=== PATIENT | male | born 1955 | race Caucasian/White ===

== ENCOUNTER → 2017-06-13 | Outpatient (CLI) | payer OTHER | LOC: FIMAGING 13:42 | PROVIDERS: ATTEND Orthopaedic Surgery | DX: M17.11 Unilateral primary osteoarthritis, right knee (principal) ==

== ENCOUNTER 2017-07-09 07:03 | Inpatient (IN) | payer BC, OTHER ==
[~2017-07-09 07:03] MED LIST: POVIDONE-IODINE 20 ML in SODIUM CL IRRIG SOLUTION 500 ML IRR ONE; ROPIVACAINE 0.2% 80 MG, EPINEPHrine 0.2 MG, KETOROLAC TROMETHAMINE 30 MG in SYRINGE 0 ML IU ONE; TRANEXAMIC ACID 3,000 MG in NS 50 ML IRR ONE; VANCOMYCIN 1.5 GM in D5W 250 ML IV SCH; VANCOMYCIN PHARMACY TO DOSE MISC ONE
--- NOTE | 2017-07-09 07:10 | PDHPUP ---
History & Physical Update H&P update statement: This history and physical update is based on an assessment of the patient which was completed after admission or registration (within 24 hours), but prior to the surgery/procedure. H&P update: H&P reviewed & patient examined, no change in patient's condition since H&P completed
[2017-07-09] MEDS ORDERED: FAMOTIDINE 20 MG TAB PO ONE (07:40)
[2017-07-09] MEDS ORDERED: ceFAZolin 2 GM/SWFI 2 GM/20 ML SYR IVP ONE (07:40)
[2017-07-09] MEDS ORDERED: DEXAMETHASONE 4 MG/ML VIAL IVP ONE (07:40)
[2017-07-09] MEDS ORDERED: ACETAMINOPHEN 325 MG TAB PO ONE (07:40)
[2017-07-09] MEDS ORDERED: TRANEXAMIC ACID 3,000 MG/50 ML BAG IRR ONE (07:40)
[2017-07-09] MEDS ORDERED: VANCOMYCIN 1 GM VIAL ONE (07:40)
[2017-07-09] MEDS ORDERED: LR 1,000 ML IV ONE (07:41)
[2017-07-09] MEDS ORDERED: LIDOCAINE 1% 2 ML INJ ID PRN (07:41)
[2017-07-09] MEDS ORDERED: VANCOMYCIN 1.5 GM in D5W 250 ML IV ONE (08:30)
[2017-07-09] MEDS ORDERED: MIDAZOLAM 2 MG/2 ML VIAL IVP ONE (09:08)
[2017-07-09] MEDS ORDERED: MIDAZOLAM 2 MG/2 ML VIAL ONE (09:10)
--- NOTE | 2017-07-09 09:10 | PDANEPAE ---
ANE History of Present Illness R KNEE OA ANE Past Medical History - Cardiovascular History Hx Hypertension: Yes Hx Arrhythmias: No Hx Chest Pain: No Hx Coronary Artery / Peripheral Vascular Disease: Yes Hx CHF / Valvular Disease: No Hx Palpitations: No Cardiovascular History Comment: cad. cardiac stent x1. multiple dvt's- on xarelto. seen by Dr. Camp at [facility] in [place]. - Pulmonary History Hx COPD: No Hx Asthma/Reactive Airway Disease: No Hx Recent Upper Respiratory Infection: No Hx Oxygen in Use at Home: No Hx Sleep Apnea: No Sleep Apnea Screening Result - Last Documented: Positive Pulmonary History Comment: hx of pna x2 none since he got pneumia vaccine. maldonado triggers - Neurologic History Hx Cerebrovascular Accident: No Hx Seizures: No Hx Dementia: No - Endocrine History Hx Diabetes: No - Renal History Hx Renal Disorders: No - Liver History Hx Hepatic Disorders: No - Neurological & Psychiatric Hx Hx Neurological and Psychiatric Disorders: No - Cancer History Hx Cancer: No - Congenital Disorder History Hx Congenital Disorders: No - GI History Hx Gastrointestinal Disorders: Yes Gastrointestinal History Comment: constipation with oxycontin - Other Health History Other Health History: wears glasses/ contacts. factor v leiden - Chronic Pain History Chronic Pain: Yes (bilateral knee pain) - Surgical History Prior Surgeries: right knee scope in 2006 then needed i&d shortly afterward. multiple knee surgeries on the right side starting in 1970. left achilles tendon repair 2001. cardiac stent x1 ANE Review of Systems Review of Systems: - Exercise capacity METS (RN): 4 METS ANE Patient History - Allergies Allergies/Adverse Reactions: No Known Allergies Allergy (Verified 06/23/17 14:20) - Home Medications Home Medications: Aspirin [Aspirin 81mg (*)] 81 mg PO DAILY 09/13/10 [Last Taken 07/02/17] Herbals/Supplements -Info Only 1 ea PO DAILY 06/23/17 [Last Taken 06/25/17] Lisinopril [Zestril 20 mg (*)] 20 mg PO BID 06/23/17 [Last Taken 07/08/17 21:00] Metoprolol Tartrate [Lopressor 50 mg (*)] 50 mg PO BID 06/23/17 [Last Taken 06:00] Rivaroxaban [Xarelto 10mg (*)] 20 mg PO HS 06/23/17 [Last Taken 07/02/17] Rosuvastatin Calcium [Crestor 40mg (*)] 40 mg PO DAILY18 06/23/17 [Last Taken 21:00] amLODIPine BESYLATE [Norvasc 5 mg (*)] 5 mg PO BID 06/23/17 [Last Taken 06:00] - NPO status NPO Status: no food or drink >8 hours NPO Since - Liquids (Date): 07/09/17 NPO Since - Liquids (Time): 06:00 NPO Since - Solids (Date): 07/08/17 NPO Since - Solids (Time): 19:00 - Smoking Hx Smoking Status: Never smoked - Family Anes Hx Family Hx Anesthesia Complications: none ANE Labs/Vital Signs - Vital Signs Vital Signs: reviewed preoperatively; see RN documention for details Blood Pressure: 115/81 Heart Rate: 66 Respiratory Rate: 16 O2 Sat (%): 91 Height: 185.42 cm Weight: 92.986 kg ANE Physical Exam - Airway Neck exam: FROM Mallampati Score: Class 1 Mouth exam: normal dental/mouth exam - Pulmonary Pulmonary: no respiratory distress - Cardiovascular Cardiovascular: regular rate and rhythym - ASA Status ASA Status: III ANE Anesthesia Plan Anesthesia Plan: GA w LMA, spinal Regional Anesthesia: adductor canal FNB
[2017-07-09] MEDS ORDERED: fentaNYL 100 MCG/2 ML INJ ONE (09:18)
[2017-07-09] MEDS ORDERED: DEXAMETHASONE 4 MG/ML VIAL ONE (09:18)
[2017-07-09] MEDS ORDERED: ROPIVACAINE HCL 150 MG/30 ML INJ ONE (09:18)
[2017-07-09] MEDS ORDERED: ONDANSETRON 4 MG/2 ML VIAL ONE (09:18)
[2017-07-09] MEDS ORDERED: PROPOFOL/EMULSION 500 MG/50 ML BOTTLE IV ONE (09:19)
[2017-07-09] MEDS ORDERED: OXYCODONE/APAP 5/325 TAB PO PRN (10:05)
[2017-07-09] MEDS ORDERED: HYDROmorphONE/DILAUDID 1 MG/ML INJ IVP PRN (10:05)
[2017-07-09] MEDS ORDERED: ONDANSETRON 4 MG/2 ML VIAL IVP PRN ×2 (10:05→10:06)
[2017-07-09] MEDS ORDERED: NALOXONE HCL 0.4 MG/ML INJ IVP PRN (10:05)
[2017-07-09] MEDS ORDERED: MEPERIDINE 25 MG/ML SYR IVP PRN (10:05)
[2017-07-09] MEDS ORDERED: PROMETHAZINE HCL 25 MG/ML INJ IVP PRN ×2 (10:05→10:06)
[2017-07-09] MEDS ORDERED: fentaNYL 100 MCG/2 ML INJ IVP PRN (10:05)
[2017-07-09] MEDS ORDERED: MAGNESIUM HYDROXIDE 30 ML UDCUP PO PRN (10:06)
[2017-07-09] MEDS ORDERED: BISACODYL 10 MG SUPP PR PRN (10:06)
[2017-07-09] MEDS ORDERED: POLYETHYLENE GLYCOL 3350 17 GM PKT PO PRN (10:06)
[2017-07-09] MEDS ORDERED: DIPHENOXYLATE/ATROPINE LOMOTIL 1 TAB PO PRN (10:06)
[2017-07-09] MEDS ORDERED: diphenhydrAMINE 25 MG CAP PO PRN (10:06)
[2017-07-09] MEDS ORDERED: PROMETHAZINE HCL 25 MG SUPPR PR PRN (10:06)
[2017-07-09] MEDS ORDERED: ONDANSETRON DISINTEGRATING 4 MG TAB PO PRN (10:06)
[2017-07-09] MEDS ORDERED: CYCLOBENZAPRINE 10 MG TAB PO PRN (10:06)
[2017-07-09] MEDS ORDERED: TEMAZEPAM 15 MG CAP PO PRN (10:06)
[2017-07-09] MEDS ORDERED: METOCLOPRAMIDE 10 MG/2 ML VIAL IVP PRN (10:06)
[2017-07-09] MEDS ORDERED: LACTULOSE 20 GM/30 ML UDCUP PO PRN (10:06)
[2017-07-09] MEDS ORDERED: PROPOFOL 200 MG/20 ML VIAL ONE (10:18)
[2017-07-09] MEDS ORDERED: LR 1,000 ML IV SCH (10:30)
--- NOTE | 2017-07-09 11:24 | POSTANESTH ---
Post Anesthetic Evaluation Cardiovascular Status: Normal, Stable Respiratory Status: Normal, Stable Level of Consciousness/Mental Status: Can Participate in Eval Pain Control: Adequate, Prn Tx Ordered Nausea/Vomiting Control: Adequate, Prn Tx Ordered Complications Possibly Related to Anesthesia: None Noted
--- NOTE | 2017-07-09 12:04 | POSTOPPROG ---
Post Op Note Date of Operation: 07/09/17 Surgeon: Terri Paris Transportation Operations Manager: sai paris Anesthesiologist: dr. penny Anesthesia: Spinal, Other (Specify) (adductor canal block) Pre-op Diagnosis: Right knee OA Post-op Diagnosis: same Indication: right knee pain due to OA that failed conservative measuers Procedure: R TKA robot assisted Findings: severe knee OA Inf/Abcess present in the surg proc area at time of surgery?: No EBL: 50-100
[2017-07-09 12:45] VITALS: RESP 16
[2017-07-09] MEDS: ACETAMINOPHEN 325 MG TAB PO SCH ×3 (15:05→23:29)
[2017-07-09] MEDS: ceFAZolin 2 GM/DEXTROSE 100 ML IV SCH (17:39)
[2017-07-09] MEDS ORDERED: ROSUVASTATIN CALCIUM 40 MG TAB PO SCH (18:00)
[2017-07-09] MEDS: oxyCODONE IR 5 MG TAB PO PRN (20:33)
[2017-07-09] MEDS: LISINOPRIL 20 MG TAB PO SCH (20:34)
[2017-07-09] MEDS: SENNOSIDES/DOCUSATE SODIUM TAB PO SCH (20:34)
[2017-07-09] MEDS: METOPROLOL TARTRATE 50 MG TAB PO SCH (20:36)
[2017-07-09] MEDS: FAMOTIDINE 20 MG TAB PO SCH (20:37)
[2017-07-09] MEDS: amLODIPine BESYLATE 5 MG TAB PO SCH (20:37)
[2017-07-09] MEDS ORDERED: RIVAROXABAN 10 MG TAB PO SCH (21:00)
[2017-07-10] MEDS: ceFAZolin 2 GM/DEXTROSE 100 ML IV SCH (01:22)
[2017-07-10] MEDS: ACETAMINOPHEN 325 MG TAB PO SCH ×2 (04:55→12:29)
[2017-07-10 05:44] LABS: HEMATOCRIT 34.5 % (40.0-51.0); HEMOGLOBIN 11.8 g/dL (13.7-17.5)
[2017-07-10 07:59] VITALS: BP 120/77; PULSE 76; TEMP 98.1; O2SAT 94
[2017-07-10] MEDS: METOPROLOL TARTRATE 50 MG TAB PO SCH (08:22)
[2017-07-10] MEDS: LISINOPRIL 20 MG TAB PO SCH (08:22)
[2017-07-10] MEDS: FAMOTIDINE 20 MG TAB PO SCH (08:22)
[2017-07-10] MEDS: amLODIPine BESYLATE 5 MG TAB PO SCH (08:22)
[2017-07-10] MEDS: SENNOSIDES/DOCUSATE SODIUM TAB PO SCH (08:23)
[2017-07-10] MEDS: oxyCODONE IR 5 MG TAB PO PRN (08:25)
--- NOTE | 2017-07-10 13:48 | GOP ---
[f rep st] OPERATIVE REPORT DATE OF OPERATION: 07/09/2017 SURGEON: Estrella Lowe MD CDL INSTRUCTOR: Xochitl Lowe PA-C ANESTHESIA: Spinal. PREOPERATIVE DIAGNOSIS: Right knee osteoarthritis. POSTOPERATIVE DIAGNOSIS: Right knee osteoarthritis. PROCEDURE PERFORMED: Right total knee arthroplasty. FINDINGS/PATHOLOGY: Severe tricompartmental osteoarthritis. ESTIMATED BLOOD LOSS: 30 cc. INDICATIONS: This is a 61-year-old male with severe and progressive pain and deformity of the right knee unresponsive to conservative care. Risks and benefits of the surgical intervention were explained in detail. DESCRIPTION OF PROCEDURE: The patient was brought to the operative room and placed on the table in the supine position. Spinal anesthesia was induced without difficulty. A pneumatic tourniquet was applied about the right proximal thigh, and the leg was prepped and draped in a sterile fashion. The leg wood was applied. After exsanguination by elevation the tourniquet was inflated to 275 mm of mercury. Incision was made anterior medial from the tibial tuberosity to a point 2 cm proximal to the superior pole of the patella. Medial parapatellar arthrotomy was carried out from the superior pole of the patella and posteriorly in line with the fibers of the Type II VMO. The medial collateral ligament was elevated and the infrapatellar fat pad was resected. The patella was everted and the articular surface was excised. A 38 mm patellar button was placed. Attention was turned first to the distal aspect of the right femur. At 3 cm proximal to the medial rise of the femur, 2 percutaneous half pins were placed for fixation of the femoral array. In a similar fashion, 2 pins were placed anteromedial on the tibia for fixation of the tibial array. External land marking and registration of the hip center was performed without difficulty. Internal femoral and tibial registration was carried out without difficulty and the femoral and tibial checkpoints were placed and verified for accuracy. Attention was turned to the femur. The foot print for the size 6 femoral component was cut with the saw using the [employer] robotic system and verified for accuracy against the CT based plan. In a similar fashion, saw was used to cut the footprint for the size 7 tibial component using the NELI system and verified for accuracy against the CT based plan. The tibial articular surface was excised without difficulty, followed by the intercondylar box cut. The knee was extended and the remnants of the medial and lateral meniscus were excised. The posterior capsule was injected with ropivacaine, epinephrine and Toradol. A size 7 tibial tray was positioned. Trial reduction was then carried out. There was excellent range of motion, alignment, and stability using the 9 mm polyethylene. All trials were then removed. The joint was thoroughly irrigated and carefully dried. The press fit components were implanted The permanent 11 mm polyethylene was placed without difficulty. The tourniquet was deflated and all bleeders were coagulated. The wound was thoroughly irrigated and closed using interrupted sutures of 2-0 Vicryl for the joint capsule. The subcu was closed with 3-0 Vicryl and the skin with 4-0 Monocryl. Dermabond and Steri-Strips were applied followed by a compressive dressing. The patient was then moved from the operating room to the recovery room in good condition, having tolerated the procedure well. /[id number]/MODL MTDD
--- NOTE | 2017-07-10 19:45 | SOAPPROG ---
SOAP Progress Note Assessment/Plan: Assessment: Nicho is doing well today s/p R TKA pain is well controlled anemia: level expected initially postop, asymptomatic VTE PPX: recommend resuming xarelto D/c planning: d/c to home today Plan: 07/10/17 19:44 Subjective: Nicho is doing well today, denies SOB, chest pain and N/V. Objective: Vital Signs Temp Pulse Resp BP Pulse Ox 36.7 C 76 16 120/77 94 07/10/17 07:59 07/10/17 08:22 07/10/17 07:59 07/10/17 08:22 07/10/17 07:59 Laboratory Results 07/10/17 04:55 07/09/17 07/10/17 07/11/17 05:59 05:59 05:59 Intake Total 2515 500 Output Total 1180 400 Balance 1335 100 RLE: incision dressing is clean and dry, NVI, +pf/df ICD10 Worksheet Patient Problems: Problems Problem Status Onset Primary localized osteoarthritis of right knee Acute
== END 2017-07-10 12:57 | disposition home or self-care (01) | DRG 470 ==
LOC: F3N 07:03 → EDSTATUS 09:15 → F3N 12:36
PROVIDERS: ADMIT Orthopaedic Surgery; ATTEND Orthopaedic Surgery
PROC: 8E0Y0CZ Robotic Assisted Procedure of Lower Extremity, Open Approach (ICD-10-PCS; principal; 2017-07-09 09:15)
PROC: 0SRC0JZ Replacement of Right Knee Joint with Synthetic Substitute, Open Approach (ICD-10-PCS; principal; 2017-07-09 09:15)
DX: M17.11 Unilateral primary osteoarthritis, right knee (principal); I10 Essential (primary) hypertension; I25.10 Atherosclerotic heart disease of native coronary artery without angina pectoris; Z95.5 Presence of coronary angioplasty implant and graft; Z86.718 Personal history of other venous thrombosis and embolism; Z79.01 Long term (current) use of anticoagulants
CPT/HCPCS: 97116-GP; 97161-GP; 97165-GO; J0171; J0690; J1100; J1885; J2250; J2405; J2704; J2795; J3010; J3370